=== PATIENT | female | born 2000 | race Caucasian/White ===

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

== ENCOUNTER 2021-02-02 05:25 | Emergency (ER) | payer OTHER ==
[2021-02-02 05:39] VITALS: BP 110/74; PULSE 88; TEMP 98.4; BMI 26.5
[2021-02-02] MEDS ORDERED: ACETAMINOPHEN 325 MG TABLET (FP) PO ONE (06:45)
[2021-02-02] MEDS ORDERED: DEXAMETHASONE SOD PHOSPHATE 10 MG/1 ML VIAL IM ONE (06:45)
[2021-02-02] MEDS ORDERED: DEXAMETHASONE SOD PHOSPHATE 10 MG/1 ML VIAL ONE (06:49)
[2021-02-02] MEDS ORDERED: ACETAMINOPHEN 325 MG TABLET (FP) ONE (06:49)
== END 2021-02-02 08:23 | disposition home or self-care (01) ==
LOC: JER 05:25
PROC: 3E023GC Introduction of Other Therapeutic Substance into Muscle, Percutaneous Approach (ICD-10-PCS; principal; 2021-02-02)
DX: R07.0 Pain in throat (principal)
CPT/HCPCS: 87070; 87880; 99284-25; J1100